=== PATIENT | male | born 1945 | race Caucasian/White ===

== ENCOUNTER 2018-07-23 17:57 | Outpatient (CLI) | payer MEDICARE ==
[2018-07-23 19:09] LABS: Anion Gap 15 mmol/L (10-20); BUN (Urea Nitrogen) 11 mg/dL (8.4-25.7); Calc. Creatinine Clearance 0 mL/min (70-130); Calcium 9.6 mg/dL (7.8-10.44); Carbon Dioxide 24 mmol/L (23-31); Chloride 99 mmol/L (98-107); Estimated GFR-MDRD 56; Glucose 96 mg/dL (83-110); Potassium 4.2 mmol/L (3.5-5.1); Sodium 134 mmol/L (136-145)
== END 2018-07-23 17:58 | disposition home or self-care (01) ==
LOC: NAV LAB 17:57
PROVIDERS: ATTEND Internal Medicine
DX: E87.1 Hypo-osmolality and hyponatremia (principal)
CPT/HCPCS: 80048

== ENCOUNTER 2020-02-03 16:07 | Outpatient (CLI) | payer MEDICARE, OTHER ==
--- NOTE | 2020-02-03 16:28 | CT ---
Exam: Head CT without contrast HISTORY: Headache. Pain. COMPARISON: 07/20/2018 FINDINGS: Hemorrhage: No intraparenchymal hemorrhage or extra-axial hematoma. Brain parenchyma: Cortical graves-white matter differentiation is preserved. No mass effect or midline shift. Basilar cisterns are patent. Ventricular system: Ventricles and sulci are patent and symmetric. Calvarium: Intact. Sinuses and mastoid air cells: Adequate aeration. IMPRESSION: No acute intracranial process.
--- NOTE | 2020-02-03 16:30 | CT ---
EXAM: CT of the cervical spine without contrast HISTORY: Headaches and neck pain that radiates to the right shoulder COMPARISON: None TECHNIQUE: Multiple contiguous axial images were obtained in a CT of the cervical spine without contr ast. Sagittal and coronal reformats were performed. FINDINGS: The vertebral bodies demonstrate normal height and alignment without fracture or subluxatio n. Moderate degenerative changes are seen in the lower cervical spine with intervertebral disc space narrowing and anterior osteophytes. Posterior facet arthrosis is seen throughout the cervical s pine, greatest in the mid cervical spine. No bony narrowing of the central canal is seen. There is moderate bony narrowing of the left C2/3 neural foramen, right C3/4 neural foramen, and bilateral saurabh ral foramina at C4/5 and C5/6. No prevertebral soft tissue swelling is seen. Normal alignment of the skull base with the cervical spine is seen. The lung apices are unremarkable. Calcifications are seen in the left internal carotid artery. IMPRESSION: Moderate degenerative changes of the cervical spine without acute osseous abnormality.
== END 2020-02-03 16:08 | disposition home or self-care (01) ==
LOC: NAV CT 16:07
PROVIDERS: ATTEND Internal Medicine
DX: M54.2 Cervicalgia (principal); M47.812 Spondylosis without myelopathy or radiculopathy, cervical region
CPT/HCPCS: 70450; 72125